=== PATIENT | male | born 1945 | race Caucasian/White ===

== ENCOUNTER 2020-11-07 11:30 | Outpatient (CLI) | payer MEDICARE, SELFPAY ==
--- NOTE | 2020-11-07 11:34 | ECG_ITS ---
Measurements Intervals [place] Rate: 61 P: 46 VT: 239 QRS: 67 QRSD: 102 T: 55 QT: 382 QTc: 386 Interpretive Statements SINUS RHYTHM WITH FIRST DEGREE AV BLOCK DELAYED PRECORDIAL R/S TRANSITION BASELINE ARTIFACT- I, III, AVL ABNORMAL ECG Electronically Signed On 11-07-2020 12:12:42 MUNICIPAL CLERK by Primo Rios D.O.
== END 2020-11-07 11:31 | disposition home or self-care (01) ==
LOC: ANHSURGERY 11:34
PROVIDERS: PCP Family Medicine; Visit Provider Plastic Surgery
DX: Z01.818 Encounter for other preprocedural examination (principal); I10 Essential (primary) hypertension; I44.0 Atrioventricular block, first degree
CPT/HCPCS: 93005

== ENCOUNTER 2020-11-11 01:25 | Outpatient (CLI) | payer MEDICARE, SELFPAY ==
[2020-11-12 00:20] LABS: SARS-CoV-2 RNA PCR Negative
== END 2020-11-11 01:26 | disposition home or self-care (01) ==
LOC: ANHCOVIDDT 01:25
PROVIDERS: Family Provider Family Medicine; PCP Family Medicine; Visit Provider Plastic Surgery
DX: Z01.812 Encounter for preprocedural laboratory examination (principal); Z20.822 Contact with and (suspected) exposure to COVID-19
CPT/HCPCS: C9803; U0003; U0005

== ENCOUNTER 2020-11-15 00:44 | Day surgery (SDC) | payer MEDICARE, SELFPAY ==
[2020-11-03 15:04] VITALS: BMI 27.3
--- NOTE | 2020-11-15 07:19 | WPDHPUPDATE1 ---
History and Physical Update Update Date/Time: 11/15/20 07:19 History and Physical has been reviewed, including an updated exam of the patient. There are NO changes in the patient's condition. Risks, benefits, and alternatives have been discussed and questions answered. Patient agrees to proceed with procedure.
[2020-11-15 08:42] VITALS: BP 156/69; PULSE 65; RESP 16; TEMP 36.4; O2SAT 100
[2020-11-15] MEDS: LACTATED RINGERS 1,000 ML 30 ML IV CONT (09:25)
--- NOTE | 2020-11-15 09:48 | WPDANESEPPF ---
Anes - Initial Pre Proc Eval Procedure: Operation Date: 11/15/20 10:30 Proposed Procedures p Excision Basal Cell Carcinoma Left Posterior [place] With Frozen Section, Possible Local Tissue Transfer Or Full Thickness Skin Graft - Gregory López MD Date/Time: 11/15/20 09:48 Surgeon: Gregory López MD Pre Op Diagnosis: Basal Cell Carcinoma Left Posterior [place] Patient Data Age: 75 Gender: M Height: 5 ft 7 in Weight: 83.1 kg Last Vital Signs Temp 97.5 F L 11/15/20 08:42 Pulse 65 11/15/20 08:42 Resp 16 11/15/20 08:42 BP 156/69 H 11/15/20 08:42 Pulse Ox 100 11/15/20 08:42 Allergies Allergy/AdvReac Type Severity Reaction Status Date / Time No Known Allergies Allergy Verified 11/15/20 08:42 Home Medications Medication Instructions Recorded Confirmed Type levothyroxine 112 mcg tablet 112 mcg PO DAILY #90 tablet 01/27/20 11/15/20 Rx aspirin [Aspir-81] 81 mg PO DAILY 11/03/20 11/15/20 History calcium carbonate-vitamin D3 1 cap PO DAILY 11/03/20 11/15/20 History [Calcium 600 + D(3)] coQ10 (ubiquinol) 100 mg PO DAILY 11/03/20 11/15/20 History copper 2 mg PO DAILY 11/03/20 11/15/20 History lisinopril 10 mg PO HS 11/03/20 11/15/20 History lutein 10 mg PO DAILY 11/03/20 11/15/20 History lycopene 10 mg PO DAILY 11/03/20 11/15/20 History multivitamin-iron (hematinic) 1 tablet PO DAILY 11/03/20 11/15/20 History [Complete Vitamin] omega-3 fatty acids [Fish Oil] 1,000 mg PO DAILY 11/03/20 11/15/20 History ondansetron HCl 4 mg PO PRN PRN 11/03/20 11/15/20 History rosuvastatin 10 mg PO QPM 11/03/20 11/15/20 History Patient hx anesthesia problems: none Family hx anesthesia problems: none PMFSH Past Medical History Medical History (Updated 11/15/20 @ 09:48 by Arden Rosario MD) External hemorrhoid, thrombosed Gastro-esophageal reflux disease with esophagitis Hyperlipidemia Hypertension Hypothyroidism (acquired) Intention tremor Overweight 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 Surgical History Surgical History (Updated 09/28/20 @ 10:16 by Maxwell Geller MD) S/P subtotal parathyroidectomy S/P thyroidectomy Family History Family History Father Family history of cardiovascular disease Cerebrovascular accident Family history of arthritis Hypertension Family history of coronary artery disease Mother Family history of malignant neoplasm of breast in first degree relative Family history of cardiovascular disease Social History Social History Smoking status: Never smoker Alcohol intake: never Living arrangements: alone Spiritual care concerns: No Anes - Eval Final PreProcedure Day of Procedure 11/15/20 09:48 Patient weight: overweight Heart: regular rate and rhythm Lungs: clear to auscultation Airway: Mallampati scale class II Neurological: alert and oriented Last oral intake: >/= 8 hours ASA classification: III Anesthetic plan: proceed Anesthesia type and monitoring: general GIVS (may use LMA) and standard monitoring Informed Consent: The patient's anesthetic plan and its attendant risks and benefits were discussed with the patient/family/POA. Questions were solicited and answers provided to the satisfaction of the patient/family/POA.
[2020-11-15] MEDS: LIDO 1%/EPINEPHRINE 1:100,000 50 ML VIAL INFILTRATE (10:27)
--- NOTE | 2020-11-15 10:34 | SUR.OPER ---
Frozen section sent with BORIS Zhong and received in pathology by Riana
[2020-11-15 11:37] VITALS: BP 123/72; PULSE 65; RESP 12; O2SAT 97
--- NOTE | 2020-11-15 11:42 | P.OPB_ITS ---
Procedure Note - Brief Procedure Note - Brief Date of procedure: 11/15/20 Pre-op diagnosis: Basal Cell Carcinoma Left Posterior [place] Post-op diagnosis: same Procedure performed: 2 cm excision of basal cell carcinoma of the left posterior ear with frozen section and complex repair 5 cm Anesthesia: MAC Surgeon: Gregory López MD Surfacing Technician: Diomedes Estimated blood loss (mL): 3 Drains: No Packing: No Pathology: yes Complications: No immediate complications Condition: stable Disposition: same day
--- NOTE | 2020-11-15 11:52 | PM.PROC ---
Procedure Note - Detailed Date of procedure: 11/15/20 Pre-op diagnosis: Basal Cell Carcinoma Left Posterior [place] Post-op diagnosis: same Procedure performed: 2 cm excision of basal cell carcinoma of the left helix with frozen section and complex repair 5 cm Description of procedure: The mass on the helix of the left ear was marked in holding. He was taken to the operating room and placed supine on the operating table. A time-out was held and confirmed. The patient was administered sedation anesthetic. The left side of his face and neck were prepped and draped in usual fashion. The site was carefully examined and marked for excision with a pen. This area was widely infiltrated with 1% lidocaine with epinephrine. The soft tissue excision was taken off the perichondrium and sent to pathology with a marking at the superior aspect for 12 o'clock. The pathology report indicated that the tumor did extend through the soft tissue and into the cartilage. I agreed with the pathologist that cartilage would be taken but it would be sent for permanent section. The disc of cartilage comprising the base of this wound was taken off of the lateral skin. The the site was then closed with additional incisions and removal of redundant cartilage and skin to tailor the wound to provide an acceptable contour. The wound was closed with 5 0 nylon. The site was dressed with bacitracin ointment and he is discharged home with a prescription for hydrocodone 5/325. Surgeon: Gregory López MD
[2020-11-15 12:07] VITALS: BP 140/69; PULSE 60; RESP 12
[2020-11-15 12:30] VITALS: BP 147/78; PULSE 64; RESP 12
== END 2020-11-15 12:35 | disposition home or self-care (01) ==
PROVIDERS: Family Provider Family Medicine; PCP Family Medicine; Visit Provider Plastic Surgery
PROC: (CPT 11642; principal; 2020-11-15 10:30)
DX: C44.219 Basal cell carcinoma of skin of left ear and external auricular canal (principal); I10 Essential (primary) hypertension; E78.5 Hyperlipidemia, unspecified; E89.0 Postprocedural hypothyroidism; G62.9 Polyneuropathy, unspecified; Z79.82 Long term (current) use of aspirin
CPT/HCPCS: 11642; 13152; 88304; 88305; 88331; 88332; 93005; A9270; C9803; J2405; J2704; J7120; U0003; U0005

== ENCOUNTER → 2022-10-22 14:16 | Outpatient (CLI) | payer MEDICARE, SELFPAY ==
--- NOTE | ~2022-10-22 | XR_ITS ---
EXAM: [id number] DATE: 10/22/2022 14:33 HISTORY: NO INJURY RIGHT NECK AND SHOULDER PAIN . COMPARISON: None available. FINDINGS: Craniocervical association and atlantoaxial joint are aligned. No prevertebral soft tissue swelling. Vertebral bodies are aligned. Vertebral body heights are maintained. Mild disc space narro wing and marginal osteophytosis at C4-5 and C5-6. Multilevel facet sclerosis and hypertrophy. IMPRESSION: Mild multilevel degenerative disc disease and facet arthropathy. Reviewed, dictated and finalized at location K. TH PROFESSOR
--- NOTE | ~2022-10-22 | XR_ITS ---
EXAM: XR shoulder RT min 2V DATE: 10/22/2022 14:33 HISTORY: NO INJURY RIGHT NECK AND SHOULDER PAIN . COMPARISON: None available. FINDINGS: Normal mineralization. No fracture or dislocation. No lytic or blastic lesion. Mild degene rative change at the AC joint and glenohumeral joint. Calcification overlying the glenoid labrum. No erosion or periosteal change. Soft tissues within normal limits. IMPRESSION: Mild degenerative changes. No acute osseous finding in the right shoulder. Reviewed, dictated and finalized at location K. OLL ACCOUNTING CLERK IMPRESSION: Mild degenerative changes. No acute osseous finding in the right sh oulder.
== END ==
PROVIDERS: PCP Family Medicine; Visit Provider Physician Assistant
DX: M50.30 Other cervical disc degeneration, unspecified cervical region (principal); M19.011 Primary osteoarthritis, right shoulder
CPT/HCPCS: 72040; 73030